=== PATIENT | female | born 1990 | race Two or more races ===

== ENCOUNTER 2017-11-07 18:31 | Emergency (ER) | payer MEDICAID ==
[~2017-11-07] VITALS: Ht 167.6 cm; Wt 74.4 kg
[2017-11-07] MEDS ORDERED: ONDANSETRON HCL/PF 4 MG/2 ML VIAL ONE (19:20)
[2017-11-07] MEDS: IV NS 0.9% 500 ML BAG IV ONE (19:32)
[2017-11-07] MEDS: ONDANSETRON HCL/PF 4 MG/2 ML VIAL IVP ONE (19:33)
--- NOTE | 2017-11-07 19:35 | NUR ---
BIB [facility] C/O EPIGASTRIC PAIN X 3 DAYS WITH NAUSEA, WORSENING WHEN LAYING DOWN. PT AAOX3, VSS. DENIES CP, SOB, DIZZINESS, DIARRHEA @ THIS TIME. PT SEEN & EVAL'D BY DR. RANDLE. MEDICATED FOR NAUSEA. WILL CONT TO MONITOR.
[2017-11-07 19:37] LABS: BASOPHILS % (AUTO) 0.6 % (0.0-2.0); HEMATOCRIT 38 % (33-45); HEMOGLOBIN 12.5 g/dL (11.5-14.8); LYMPHOCYTES # (AUTO) 1.7 /CMM (0.8-4.8); LYMPHOCYTES % (AUTO) 26.4 % (20.0-44.0); MEAN CORPUSCULAR HGB CONC 33 g/dl (31.0-36.0); MEAN CORPUSCULAR VOLUME 82 fL (82-100); MONOCYTES # (AUTO) 0.4 /CMM (0.1-1.30); MONOCYTES % (AUTO) 6.7 % (2.0-12.0); NEUTROPHILS % (AUTO) 62.3 % (43.0-81.0); PLATELET COUNT (AUTO) 206 /CMM (150-450); RDW COEFFICIENT OF VARIATION 13.4 (11.5-15.0); WHITE BLOOD COUNT (AUTO) 6.4 K/uL (4.3-11.0)
[2017-11-07 19:58] LABS: CREATININE 0.7 mg/dL (0.6-1.3); POTASSIUM 4.3 mmol/L (3.5-5.1)
[2017-11-07] MEDS ORDERED: MAG HYDROX/AL HYDROX/SIMETH 30 ML UDC ONE (20:01)
[2017-11-07] MEDS ORDERED: LIDOCAINE VISCOUS 2% UD 15 ML UDC ONE (20:01)
[2017-11-07] MEDS: LIDOCAINE VISCOUS 2% UD 15 ML UDC MM ONE (20:06)
[2017-11-07] MEDS: MAG HYDROX/AL HYDROX/SIMETH 30 ML UDC PO ONE (20:06)
--- NOTE | 2017-11-07 20:08 | NUR ---
MEDICATED FOR EPIGASTRIC PAIN PER ERMD ORDER, PT MARIA ESTHER WELL.
[2017-11-07 20:12] LABS: ALBUMIN 3.7 g/dL (3.4-5.0); BILIRUBIN,DIRECT 0.1 mg/dL (0.0-0.2); BILIRUBIN,TOTAL 0.3 mg/dL (0.2-1.0); TOTAL PROTEIN, SERUM 7.3 g/dL (6.4-8.2)
[2017-11-07 21:08] VITALS: BP 128/70
--- NOTE | 2017-11-07 21:08 | NUR ---
Patient discharged to home in stable condition. Written and verbal after care instructions given. Patient verbalizes understanding of instruction.
== END 2017-11-07 21:09 | disposition home or self-care (01) ==
LOC: ER 18:33
DX: R10.13 Epigastric pain (principal); R11.2 Nausea with vomiting, unspecified
CPT/HCPCS: 36415; 80048; 80076; 83690; 85025; 96361; 96374; 99284; A4606; J2405; J7030; Z7610